=== PATIENT | male | born 1975 | race Two or more races ===

== ENCOUNTER 2025-04-17 06:14 | Emergency (ER) | payer OTHER ==
[~2025-04-17] VITALS: Ht 175.3 cm; Wt 79.8 kg
[2025-04-17] MEDS ORDERED: SPIR25TA6 PO (06:37)
[2025-04-17] MEDS ORDERED: EMPA10TA PO (06:37)
[2025-04-17] MEDS ORDERED: SULFAMETH/TRIMETH 800/160 MG TABLET ONE (06:59)
[2025-04-17] MEDS ORDERED: LIDOCAINE 2%-EPI 1:100,000 20 ML VIAL ONE (06:59)
[2025-04-17] MEDS ORDERED: NEOMY/BACITRA/POLYMYXIN B OINT UD PACKET TP ONE (06:59)
[2025-04-17] MEDS ORDERED: CLOT15CR27 TP (07:00)
[2025-04-17] MEDS ORDERED: SULF1TAB48 PO (07:00)
[2025-04-17] MEDS: LIDOCAINE 1%-EPI 1:100,000 20 ML VIAL IJ ONE (07:04)
[2025-04-17] MEDS: NEOMY/BACITRA/POLYMYXIN B OINT UD PACKET TP ONE (07:04)
[2025-04-17] MEDS: SULFAMETH/TRIMETH 800/160 MG TABLET PO ONE (07:04)
[2025-04-17 07:59] VITALS: BP 143/99; TEMP 97.8; O2SAT 98
== END 2025-04-17 08:00 | disposition home or self-care (01) ==
LOC: ER 06:34
DX: L03.114 Cellulitis of left upper limb (principal); B95.61 Methicillin susceptible Staphylococcus aureus infection as the cause of diseases classified elsewhere; B35.0 Tinea barbae and tinea capitis; F17.210 Nicotine dependence, cigarettes, uncomplicated; F15.10 Other stimulant abuse, uncomplicated; Z59.00 Homelessness unspecified; Z79.84 Long term (current) use of oral hypoglycemic drugs; Z79.899 Other long term (current) drug therapy
CPT/HCPCS: A4606; A4663

== ENCOUNTER 2025-07-09 04:52 | Emergency (ER) | payer OTHER ==
[~2025-07-09] VITALS: Ht 165.1 cm; Wt 77.1 kg
[~2025-07-09 04:52] MED LIST: CLOT15CR27 TP; EMPA10TA PO; SPIR25TA6 PO; SULF1TAB48 PO
[2025-07-09] MEDS ORDERED: TETRACAINE HCL 0.5% OPHT DROP 2 ML BOTTLE ONE (05:16)
[2025-07-09] MEDS ORDERED: SODIUM/POT/SOD CHL OPHT WASH 120 ML BOTTLE ONE (05:24)
[2025-07-09] MEDS: SODIUM/POT/SOD CHL OPHT WASH 120 ML BOTTLE OP ONE (05:45)
[2025-07-09] MEDS: TETRACAINE HCL 0.5% OPHT DROP 2 ML BOTTLE OP ONE (05:45)
[2025-07-09] MEDS ORDERED: CIPROFLOXACIN 0.3% OPHT DROP 2.5 ML BOTTLE ONE (05:48)
[2025-07-09] MEDS: CIPROFLOXACIN 0.3% OPHT OINT 3.5 GM TUBE RIGHTEYE SCH (06:02)
[2025-07-09] MEDS ORDERED: FUROSEMIDE 40 MG/4 ML VIAL ONE (10:10)
[2025-07-09] MEDS ORDERED: CLONIDINE HCL 0.1 MG TABLET ONE (10:11)
[2025-07-09] MEDS ORDERED: NITROGLYCERIN OINT 1 GM PACKET TP ONE (10:11)
[2025-07-09 10:16] LABS: PLATELET COUNT (AUTO) 121 K/uL (152-348); RED BLOOD CELL COUNT(AUTO) 4.84 MIL/uL (4.06-5.63); RED CELL DISTRIBUTION WIDTH 16.1 % (12.1-16.2); WHITE BLOOD COUNT (AUTO) 6.8 K/uL (3.6-10.2)
[2025-07-09 10:27] VITALS: BP 138/108
[2025-07-09] MEDS: FUROSEMIDE 20 MG/2 ML VIAL IVP ONE (10:27)
[2025-07-09] MEDS: NITROGLYCERIN OINT 1 GM PACKET TP ONE (10:27)
[2025-07-09] MEDS: CLONIDINE HCL 0.1 MG TABLET PO ONE (10:27)
[2025-07-09 10:31] LABS: ASPARTATE AMINOTRANSFERASE 54 U/L (15-37); CREATININE 0.7 mg/dL (0.6-1.3); SODIUM SERUM 135 mmol/L (136-145); TOTAL PROTEIN, SERUM 8.7 g/dL (6.4-8.2); UREA NITROGEN, BLOOD 17 mg/dL (7-18)
[2025-07-09 11:00] VITALS: BP 119/86; O2SAT 92
== END 2025-07-09 14:07 | disposition short-term general hospital (02) ==
LOC: ER 04:56
DX: T15.01XA Foreign body in cornea, right eye, initial encounter (principal); R94.31 Abnormal electrocardiogram [ECG] [EKG]; F17.210 Nicotine dependence, cigarettes, uncomplicated; I25.2 Old myocardial infarction; I50.9 Heart failure, unspecified; Z79.84 Long term (current) use of oral hypoglycemic drugs; Z79.899 Other long term (current) drug therapy; Z60.2 Problems related to living alone; Z59.00 Homelessness unspecified; W44.9XXA Unspecified foreign body entering into or through a natural orifice, initial encounter; Y93.89 Activity, other specified; Y92.89 Other specified places as the place of occurrence of the external cause; Y99.8 Other external cause status
CPT/HCPCS: 99285; 96374; 71045; 80076; 80048; 83880; 85025; 84484; 36415; 70200; 93005; J1938; 70030-TC; A4606; A4663